=== PATIENT | female | born 1960 | race Caucasian/White ===

== ENCOUNTER → 2017-02-01 | Outpatient (CLI) | payer BC, OTHER ==
[~2017-02-01] VITALS: Ht 165.1 cm; Wt 113.4 kg
[~2017-02-01] MED LIST: ALDACTONE25 MG PO; ALLOPURINOL 10100 M1 PO; CURCUMIN PO; FISH OIL 1,001000 M2 PO; FOLIC ACID1 MG PO; LASIX 40 MG TAB40 M2 PO; METHOTREXATE 22.5 MG PO; PARLODEL PO; PROZAC20 MG PO; XANAX 0.5 MG0.5 MG PO; ZOCOR20 MG PO; ZYRTEC 10 MG TA10 MG PO
--- NOTE | ~2017-02-01 | CATHLAB ---
[facility] [place] [address] INVASIVE PROCEDURE REPORT Name: MARSHAENEDINATATIANA ARZOLA Room #: REG CL [facility]#: [id number] Admission: 02/01/17 Attend Phys: Smith Morgan Discharge: Date of : 64 Date of Service: 02/01/17 1137 Report #: [id number] THIS REPORT FOR: //name// CC: Melvin Dunn DATE OF SERVICE: 02/01/2017 CARDIAC CATHETERIZATION REPORT DATE OF SERVICE: 02/01/2017. INDICATIONS: A 56-year-old female patient with chest pain and noninvasive workup consistent with ischemia. DIRECTOR ON AIR: Smith Dunn M.D. PROCEDURES: 1. Left heart catheterization. 2. Left and right coronary angiography. 3. Measurement of left ventricular end diastolic pressures. 4. Supervision of conscious sedation. BRIEF DESCRIPTION OF PROCEDURE: After informed consent was obtained, the patient was brought to the cardiac catheterization laboratory in stable condition. The patient's right groin was prepped and draped in the usual sterile manner after which lidocaine was then instilled. Utilizing a modified Seldinger technique, the right femoral artery was then accessed. Under fluoroscopic visualization using selective coronary catheters, the right and left coronaries were opacified and visualized. The left ventriculogram was likewise imaged per standard protocol with EDP being measured. Subsequent to this, the sheath was removed, hemostasis achieved. The patient tolerated the procedure well. There were no complications. FINDINGS: 1. RHYTHM: The patient's rhythm was sinus throughout the entire procedure. 2. FLUOROSCOPY: Under fluoroscopic visualization, there was minimal calcific plaquing along the epicardial coronary arteries. 3. HEMODYNAMICS: a. Aortic pressure 122/73. b. Left ventricular end diastolic pressures 20-25. 4. ANGIOGRAPHY: This is a right coronary dominant system. a. Left main normal origin and caliber, bifurcates left anterior descending and circumflex, free of high-grade disease. b. Left anterior descending is a moderate caliber type 3 vessel which courses in the anterior interventricular sulcus giving rise to first diagonal branch and [facility] [address] [address] INVASIVE PROCEDURE REPORT Name: SADEENEDINA DARIUSZ Room #: REG [facility].#: [id number] Admission: 02/01/17 Attend Phys: Smith Morgan Discharge: Date of : 64 Date of Service: 02/01/17 1137 Report #: [id number] septal, which are free of high-grade disease. There are only luminal irregularities noted. The LAD then continues in the sulcus tapering rapidly to a string at the apex with tortuosity noted, but no high-grade obstructive lesions. c. Left circumflex is a moderate caliber nondominant vessel without significant high-grade disease. d. Right coronary artery is a large caliber dominant vessel which courses in the AV groove posteriorly to the crux of the heart. Gives rise to posterior descending artery and posterolateral wall branches, all of which are free of high-grade disease, but do have with mild luminal irregularities. IMPRESSION: 1. Minimal nonobstructive coronary artery disease. 2. Abnormal hemodynamics with elevated left ventricular end-diastolic pressures. 3. Recommendations to optimize risk factor modifications and medical management. <ELECTRONICALLY SIGNED> By: Smith Dunn MD 02/01/17 1741 1137 [id number] Smith Dunn MD /nt
[2017-02-01 09:33] VITALS: BP 118/61
== END | disposition home or self-care (01) ==
LOC: CATH 09:06
DX: I25.10 Atherosclerotic heart disease of native coronary artery without angina pectoris (principal); G47.33 Obstructive sleep apnea (adult) (pediatric); E78.5 Hyperlipidemia, unspecified; E66.09 Other obesity due to excess calories; Z90.710 Acquired absence of both cervix and uterus; Z90.49 Acquired absence of other specified parts of digestive tract; Z90.5 Acquired absence of kidney; Z98.890 Other specified postprocedural states